=== PATIENT | female | born 1940 | race Caucasian/White ===

== ENCOUNTER → 2016-09-20 | Outpatient (CLI) | payer OTHER | LOC: US 11:06 | DX: Q61.00 Congenital renal cyst, unspecified (principal); N28.89 Other specified disorders of kidney and ureter ==

== ENCOUNTER 2020-08-23 12:39 | Inpatient (IN) | payer OTHER ==
[~2020-08-23] VITALS: Ht 165.1 cm; Wt 77.1 kg
[2020-08-23 14:28] LABS: RED BLOOD COUNT 4.75 M/UL (4.00-5.10); WHITE BLOOD COUNT 7.6 K/UL (4.5-11.0)
[2020-08-23 14:53] LABS: BUN/CREATININE RATIO 22 (0-10)
[2020-08-23] MEDS ORDERED: ATORVASTATIN CA20 MG PO (20:41)
[2020-08-23] MEDS ORDERED: GLUCOPHAGE 500500 MG PO (20:41)
[2020-08-23] MEDS ORDERED: LOPRESSOR 25 MG25 MG PO (20:41)
[2020-08-23] MEDS ORDERED: PROPYLTHIOURACI50 MG PO (20:42)
[2020-08-23] MEDS ORDERED: LISINOPRIL5 MG PO (20:42)
[2020-08-23] MEDS ORDERED: DAILY VITAMIN1 EAC2 PO (20:43)
[2020-08-23] MEDS ORDERED: ASPIRIN EC81 MG PO (20:44)
[2020-08-24 03:48] LABS: HEMOGLOBIN 12.7 gm/dl (12.3-15.3); RED BLOOD COUNT 4.39 M/UL (4.00-5.10); WHITE BLOOD COUNT 7.8 K/UL (4.5-11.0)
[2020-08-24 04:04] LABS: BUN/CREATININE RATIO 23 (0-10)
[2020-08-24] MEDS ORDERED: CEFUROXIME500 MG PO (13:23)
[2020-08-26 04:08] LABS: HEMOGLOBIN 12.5 gm/dl (12.3-15.3); RED BLOOD COUNT 4.3 M/UL (4.00-5.10)
[2020-08-26 04:13] LABS: WHITE BLOOD COUNT 10.3 K/UL (4.5-11.0)
[2020-08-26 04:29] LABS: BUN/CREATININE RATIO 26 (0-10)
== END 2020-08-26 11:17 | disposition home or self-care (01) | DRG 308 ==
LOC: ER1 12:39 → CDU 17:51 → MED SURG 4 17:51 → CDU 17:51 → MED SURG 4 22:01
PROVIDERS: Internal Medicine; Physician Assistant Medical; ADMIT Internal Medicine
DX: I48.0 Paroxysmal atrial fibrillation (principal); J18.9 Pneumonia, unspecified organism; N30.00 Acute cystitis without hematuria; C91.10 Chronic lymphocytic leukemia of B-cell type not having achieved remission; E87.1 Hypo-osmolality and hyponatremia; Z20.822 Contact with and (suspected) exposure to COVID-19; I10 Essential (primary) hypertension; E78.5 Hyperlipidemia, unspecified; E05.90 Thyrotoxicosis, unspecified without thyrotoxic crisis or storm; E11.9 Type 2 diabetes mellitus without complications; Z53.29 Procedure and treatment not carried out because of patient's decision for other reasons; Z79.01 Long term (current) use of anticoagulants; Z90.49 Acquired absence of other specified parts of digestive tract; Z90.710 Acquired absence of both cervix and uterus; Z82.49 Family history of ischemic heart disease and other diseases of the circulatory system; Z88.2 Allergy status to sulfonamides; Z83.3 Family history of diabetes mellitus; Z79.82 Long term (current) use of aspirin; Z79.4 Long term (current) use of insulin
CPT/HCPCS: 0240U; 36415; 71045; 71046; 80048; 80053; 81001; 82550; 82553; 82962; 83036; 83735; 83874; 83880; 84439; 84443; 84484; 85025; 85027; 87040; 87086; 93005; 96365; 96372; 96374; 96375; 96376; 97161; 99285; G0378; J0696

== ENCOUNTER → 2020-10-13 | Outpatient (CLI) | payer OTHER ==
[~2020-10-13] MED LIST: ASPIRIN EC81 MG PO; ATORVASTATIN CA20 MG PO; CEFUROXIME250 MG PO; CEFUROXIME500 MG PO; DAILY VITAMIN1 EAC2 PO; ELIQUIS 5 MG TAB5 MG PO; GLUCOPHAGE 500500 MG PO; LISINOPRIL5 MG PO; LOPRESSOR 25 MG25 MG PO; PROPYLTHIOURACI50 MG PO
== END ==
LOC: HEART 5 08:02
DX: I48.0 Paroxysmal atrial fibrillation (principal)
CPT/HCPCS: 93306

== ENCOUNTER 2020-11-20 16:04 | Observation (INO) | payer OTHER ==
[~2020-11-20] VITALS: Ht 165.1 cm; Wt 75.6 kg
[~2020-11-20 16:04] MED LIST changes: -CEFUROXIME250 MG PO; -ELIQUIS 5 MG TAB5 MG PO
[2020-11-20 16:49] LABS: HEMOGLOBIN 11.9 gm/dl (12.3-15.3); RED BLOOD COUNT 4.07 M/UL (4.00-5.10); WHITE BLOOD COUNT 17.4 K/UL (4.5-11.0)
[2020-11-20 17:11] LABS: BUN/CREATININE RATIO 20 (0-10)
[2020-11-21 03:43] LABS: HEMOGLOBIN 11.4 gm/dl (12.3-15.3); WHITE BLOOD COUNT 16.7 K/UL (4.5-11.0)
[2020-11-21 03:59] LABS: BUN/CREATININE RATIO 23 (0-10)
[2020-11-22 04:25] LABS: HEMOGLOBIN 11.8 gm/dl (12.3-15.3); RED BLOOD COUNT 4.11 M/UL (4.00-5.10); WHITE BLOOD COUNT 14.1 K/UL (4.5-11.0)
[2020-11-22 04:52] LABS: BUN/CREATININE RATIO 23 (0-10)
[2020-11-22] MEDS ORDERED: ELIQUIS 5 MG TAB5 MG PO (09:59)
[2020-11-22] MEDS ORDERED: CEFUROXIME250 MG PO (09:59)
== END 2020-11-22 13:20 | disposition home or self-care (01) ==
LOC: ER1 16:04 → CDU 18:07 → MED SURG 4 18:07
PROVIDERS: Emergency Medicine; Physician Assistant; ADMIT Internal Medicine
DX: N30.00 Acute cystitis without hematuria (principal); B96.20 Unspecified Escherichia coli [E. coli] as the cause of diseases classified elsewhere; C91.10 Chronic lymphocytic leukemia of B-cell type not having achieved remission; E11.9 Type 2 diabetes mellitus without complications; I48.0 Paroxysmal atrial fibrillation; K21.9 Gastro-esophageal reflux disease without esophagitis; E05.90 Thyrotoxicosis, unspecified without thyrotoxic crisis or storm; I10 Essential (primary) hypertension; E78.5 Hyperlipidemia, unspecified; E03.9 Hypothyroidism, unspecified; Z88.2 Allergy status to sulfonamides; Z79.01 Long term (current) use of anticoagulants; Z79.84 Long term (current) use of oral hypoglycemic drugs; Z79.899 Other long term (current) drug therapy; Z20.822 Contact with and (suspected) exposure to COVID-19
CPT/HCPCS: 36415; 80048; 80053; 81001; 82962; 83690; 85025; 87040; 87077; 87086; 87186; 96374; 96376; 99285; G0378; J0696; U0002

== ENCOUNTER → 2020-12-14 | Outpatient (CLI) | payer OTHER ==
[~2020-12-14] MED LIST changes: +CEFUROXIME250 MG PO; +ELIQUIS 5 MG TAB5 MG PO
== END ==
LOC: CT 14:23
DX: R74.8 Abnormal levels of other serum enzymes (principal); N28.9 Disorder of kidney and ureter, unspecified
CPT/HCPCS: 74160; Q9967

== ENCOUNTER 2021-02-16 07:17 | Emergency (ER) | payer OTHER ==
[2021-02-16 08:06] LABS: HEMOGLOBIN 13.8 gm/dl (12.3-15.3); RED BLOOD COUNT 5.01 M/UL (4.00-5.10); WHITE BLOOD COUNT 15.1 K/UL (4.5-11.0)
[2021-02-16 08:32] LABS: BUN/CREATININE RATIO 27 (0-10)
== END 2021-02-16 11:38 | disposition home or self-care (01) ==
LOC: ER1 07:17
PROVIDERS: Emergency Medicine
DX: I48.0 Paroxysmal atrial fibrillation (principal); I49.9 Cardiac arrhythmia, unspecified; Z20.822 Contact with and (suspected) exposure to COVID-19
CPT/HCPCS: 71045; 80053; 82550; 82553; 83874; 83880; 84484; 85025; 93005; 96374; 99285; U0002

== ENCOUNTER → 2021-05-02 | Outpatient (CLI) | payer OTHER | LOC: KOH-I 11:25 | DX: J18.9 Pneumonia, unspecified organism (principal); R91.8 Other nonspecific abnormal finding of lung field | CPT/HCPCS: 71046 ==

== ENCOUNTER → 2021-07-05 | Outpatient (CLI) | payer OTHER | LOC: KOH-I 10:06 | DX: J18.9 Pneumonia, unspecified organism (principal) | CPT/HCPCS: 71046 ==

== ENCOUNTER 2021-07-13 05:46 | Emergency (ER) | payer OTHER ==
[2021-07-13 06:56] LABS: HEMOGLOBIN 11.5 gm/dl (12.3-15.3); RED BLOOD COUNT 4.29 M/UL (4.00-5.10); WHITE BLOOD COUNT 13.5 K/UL (4.5-11.0)
[2021-07-13 07:21] LABS: BUN/CREATININE RATIO 23 (0-10)
[2021-07-13] MEDS ORDERED: FLONASE 0.05% N16 GM (09:24)
[2021-07-13] MEDS ORDERED: DELSYM30 MG/5 ML PO (09:24)
== END 2021-07-13 09:33 | disposition home or self-care (01) ==
LOC: ER1 05:46
PROVIDERS: Physician Assistant Medical
DX: U07.1 COVID-19 (principal); I48.91 Unspecified atrial fibrillation; I10 Essential (primary) hypertension; Z90.49 Acquired absence of other specified parts of digestive tract; Z90.89 Acquired absence of other organs; Z88.2 Allergy status to sulfonamides; Z79.01 Long term (current) use of anticoagulants
CPT/HCPCS: 71045; 80053; 85025; 99283; U0002

== ENCOUNTER → 2021-07-25 | Outpatient (CLI) | payer OTHER ==
[~2021-07-25] MED LIST changes: +DELSYM30 MG/5 ML PO; +FLONASE 0.05% N16 GM
== END ==
LOC: KOH-I 07-22 10:30
DX: J18.9 Pneumonia, unspecified organism (principal); R59.0 Localized enlarged lymph nodes
CPT/HCPCS: 71250

== ENCOUNTER → 2021-11-15 | Outpatient (CLI) | payer OTHER | LOC: HEART 5 12:50 | DX: J84.10 Pulmonary fibrosis, unspecified (principal); R94.2 Abnormal results of pulmonary function studies | CPT/HCPCS: 94060; 94729 ==

== ENCOUNTER → 2021-11-23 | Outpatient (CLI) | payer OTHER | LOC: KOH-I 10:41 | DX: J84.9 Interstitial pulmonary disease, unspecified (principal); R06.02 Shortness of breath; Z86.16 Personal history of COVID-19; J98.11 Atelectasis | CPT/HCPCS: 71250 ==

== ENCOUNTER → 2021-11-30 | Outpatient (CLI) | payer OTHER | LOC: LAB 10:27 | DX: R31.9 Hematuria, unspecified (principal) | CPT/HCPCS: 81001 ==

== ENCOUNTER → 2022-01-06 | Outpatient (CLI) | payer OTHER | LOC: CT 12-30 09:30 | DX: N28.1 Cyst of kidney, acquired (principal); R10.9 Unspecified abdominal pain | CPT/HCPCS: 36415; 74170; 82565; 84520; Q9967 ==

== ENCOUNTER 2022-01-16 12:22 | Emergency (ER) | payer OTHER ==
[2022-01-16 12:57] LABS: HEMOGLOBIN 13.4 gm/dl (12.3-15.3); RED BLOOD COUNT 4.86 M/UL (4.00-5.10); WHITE BLOOD COUNT 18.8 K/UL (4.5-11.0)
[2022-01-16 13:32] LABS: BUN/CREATININE RATIO 27 (0-10)
[2022-01-16] MEDS ORDERED: DOXYCYCLINE HY100 MG PO (17:05)
[2022-01-16] MEDS ORDERED: METOPROLOL TART50 MG PO (17:05)
[2022-01-16] MEDS ORDERED: LASIX20 MG PO (17:12)
== END 2022-01-16 17:23 | disposition home or self-care (01) ==
LOC: ER1 12:22
PROVIDERS: Physician Assistant
DX: J98.4 Other disorders of lung (principal); I48.91 Unspecified atrial fibrillation; D72.829 Elevated white blood cell count, unspecified; Z79.01 Long term (current) use of anticoagulants; K21.9 Gastro-esophageal reflux disease without esophagitis; E05.90 Thyrotoxicosis, unspecified without thyrotoxic crisis or storm; Z79.899 Other long term (current) drug therapy; Z88.2 Allergy status to sulfonamides; Z88.1 Allergy status to other antibiotic agents; Z20.822 Contact with and (suspected) exposure to COVID-19
CPT/HCPCS: 71045; 80053; 82550; 82553; 83605; 83880; 84439; 84443; 84484; 85025; 85610; 93005; 96374; 96375; 99285; J1940; U0002